=== PATIENT | female | born 1945 | race Caucasian/White ===

== ENCOUNTER 2022-07-30 10:08 | Outpatient (REF) | payer OTHER, SELFPAY ==
[2022-07-30 13:44] LABS: Basophils Percent Auto 0.4 % (0-2); Eosinophils Absolute Auto 0.2 X10*3/uL (0.0-0.4); Eosinophils Percent Auto 2.7 % (0-4); Hematocrit 30.5 % (37.0-47.0); Hemoglobin 9.3 g/dl (12.0-16.0); Imm Gran Abs Auto 0.07 X10*3/uL (0.00-0.03); Imm Gran Pct Auto 0.9 % (0.0-0.4); Lymphocytes Absolute Auto 0.9 X10*3/uL (1.2-4.9); Lymphocytes Percent Auto 11.2 % (20-40); MANUAL DIFF FLAG SCAN; Mean Corpuscular HGB Conc 30.5 g/dl (31.0-35.0); Mean Corpuscular Volume 88.7 fL (80.0-98.0); Mean Platelet Volume 10.7 fL (9.4-12.3); Monocytes Absolute Auto 0.5 X10*3/uL (0.1-1.2); Monocytes Percent Auto 6.5 % (2-11); Neutrophils Percent Auto 78.3 % (45-73); PLT CLUMP 1; Red Blood Count 3.44 X10*6/uL (4.20-5.50); Red Cell Distribution Width 21.6 % (11.0-16.0); SCAN SMEAR FLAG 1
[2022-07-30 13:45] LABS: Platelet Count 267 X10*3/uL (160-400); White Blood Count 7.7 X10*3/uL (4.8-10.8)
[2022-07-30 13:58] LABS: Alanine Aminotransferase 35 U/L (0-31); Aspartate Amino Transferase 36 U/L (5-31); Estimated Glomerular Filt Rate > 60
[2022-07-30 14:07] LABS: SLIDE REVIEW VERIFIED
== END 2022-07-30 10:09 | disposition home or self-care (01) ==
LOC: HO.10HDL 10:08
PROVIDERS: Visit Provider Internal Medicine Rheumatology
DX: Z79.899 Other long term (current) drug therapy (principal)
CPT/HCPCS: 36415; 82565; 84450; 84460; 85025

== ENCOUNTER → 2022-12-10 09:23 | Outpatient (BNVA) | payer OTHER, SELFPAY | PROVIDERS: PCP Physician Assistant Medical; Visit Provider Internal Medicine Rheumatology | DX: Z13.89 Encounter for screening for other disorder (principal) ==

== ENCOUNTER 2022-12-10 10:37 | Outpatient (REF) | payer OTHER, SELFPAY ==
[2022-12-10 14:06] LABS: MANUAL DIFF FLAG NO
[2022-12-10 14:28] LABS: Basophils Absolute Auto 0.1 X10*3/uL (0.0-0.2); Basophils Percent Auto 0.9 % (0-2); Eosinophils Absolute Auto 1.1 X10*3/uL (0.0-0.4); Eosinophils Percent Auto 9.8 % (0-4); Hematocrit 35.3 % (37.0-47.0); Hemoglobin 10.9 g/dl (12.0-16.0); Imm Gran Abs Auto 0.09 X10*3/uL (0.00-0.03); Imm Gran Pct Auto 0.8 % (0.0-0.4); Lymphocytes Absolute Auto 0.7 X10*3/uL (1.2-4.9); Lymphocytes Percent Auto 6.1 % (20-40); Mean Corpuscular HGB Conc 30.9 g/dl (31.0-35.0); Mean Corpuscular Hemoglobin 29.8 pg (27.0-33.0); Mean Corpuscular Volume 96.4 fL (80.0-98.0); Mean Platelet Volume 10.3 fL (9.4-12.3); Monocytes Absolute Auto 0.7 X10*3/uL (0.1-1.2); Monocytes Percent Auto 6.5 % (2-11); Neutrophils Absolute Auto 8.3 x10*3/uL (2.0-8.3); Neutrophils Percent Auto 75.9 % (45-73); Platelet Count 215 X10*3/uL (160-400); Red Blood Count 3.66 X10*6/uL (4.20-5.50); Red Cell Distribution Width 25.3 % (11.0-16.0); White Blood Count 10.9 X10*3/uL (4.8-10.8)
[2022-12-10 15:06] LABS: Erythrocyte Sedimentation Rate 90 MM/HR (0-20)
[2022-12-10 15:12] LABS: Alanine Aminotransferase 31 U/L (0-31); Aspartate Amino Transferase 35 U/L (5-31); C Reactive Protein 4.87 mg/dL (< or = 0.50); Estimated Glomerular Filt Rate > 60
== END 2022-12-10 10:38 | disposition home or self-care (01) ==
LOC: HO.10HDL 10:37
PROVIDERS: Visit Provider Internal Medicine Rheumatology
DX: M05.9 Rheumatoid arthritis with rheumatoid factor, unspecified (principal); Z79.899 Other long term (current) drug therapy
CPT/HCPCS: 36415; 82565; 84450; 84460; 85025; 85652; 86140

== ENCOUNTER 2023-01-11 14:52 | Outpatient (REF) | payer OTHER, SELFPAY ==
[2023-01-11 15:51] LABS: MANUAL DIFF FLAG NO
[2023-01-11 16:15] LABS: Basophils Percent Auto 0.3 % (0-2); Eosinophils Absolute Auto 0.6 X10*3/uL (0.0-0.4); Eosinophils Percent Auto 5.6 % (0-4); Hematocrit 37.2 % (37.0-47.0); Hemoglobin 11.7 g/dl (12.0-16.0); Imm Gran Abs Auto 0.05 X10*3/uL (0.00-0.03); Imm Gran Pct Auto 0.5 % (0.0-0.4); Lymphocytes Absolute Auto 0.8 X10*3/uL (1.2-4.9); Lymphocytes Percent Auto 7.6 % (20-40); Mean Corpuscular HGB Conc 31.5 g/dl (31.0-35.0); Mean Corpuscular Hemoglobin 31.6 pg (27.0-33.0); Mean Corpuscular Volume 100.5 fL (80.0-98.0); Mean Platelet Volume 9.9 fL (9.4-12.3); Monocytes Absolute Auto 0.5 X10*3/uL (0.1-1.2); Monocytes Percent Auto 4.4 % (2-11); Neutrophils Absolute Auto 8.3 x10*3/uL (2.0-8.3); Neutrophils Percent Auto 81.6 % (45-73); Platelet Count 215 X10*3/uL (160-400); Red Cell Distribution Width 19.1 % (11.0-16.0); White Blood Count 10.2 X10*3/uL (4.8-10.8)
[2023-01-11 16:43] LABS: Anion Gap 14 (12-20); Blood Urea Nitrogen 9 mg/dL (9-16); Calcium 9.1 mg/dL (8.4-10.2); Carbon Dioxide 23 mmol/L (22-29); Chloride 106 mmol/L (96-108); Estimated Glomerular Filt Rate > 60; Glucose Random 83 mg/dL (60-115); Potassium 3.9 mmol/L (3.3-5.1); Sodium 139 mmol/L (135-145)
[2023-01-11 16:57] LABS: Erythrocyte Sedimentation Rate 86 MM/HR (0-20)
[2023-01-12 15:04] LABS: IgA 183 mg/dL (70-320); IgG 1634 mg/dL (600-1540); IgM 165 mg/dL (50-300)
== END 2023-01-11 14:53 | disposition home or self-care (01) ==
LOC: HO.LAB 14:52
PROVIDERS: PCP Physician Assistant Medical; Visit Provider Hospitalist
DX: J45.50 Severe persistent asthma, uncomplicated (principal); J84.9 Interstitial pulmonary disease, unspecified; T78.40XA Allergy, unspecified, initial encounter; R91.8 Other nonspecific abnormal finding of lung field
CPT/HCPCS: 36415; 80048; 82784; 82785; 85025; 85652; 86003

== ENCOUNTER 2023-01-14 10:25 | Outpatient (REF) | payer OTHER, SELFPAY | END 2023-01-14 10:26 | disposition home or self-care (01) | LOC: HO.LNP 10:25 | PROVIDERS: Visit Provider Hospitalist | DX: J45.909 Unspecified asthma, uncomplicated (principal) | CPT/HCPCS: 87070; 87205 ==

== ENCOUNTER → 2023-03-24 11:08 | Outpatient (BNVA) | payer OTHER, SELFPAY | PROVIDERS: PCP Physician Assistant Medical; Visit Provider Hospitalist | DX: J45.909 Unspecified asthma, uncomplicated (principal); T78.40XA Allergy, unspecified, initial encounter; K21.9 Gastro-esophageal reflux disease without esophagitis ==

== ENCOUNTER → 2023-04-07 09:53 | Outpatient (BNVA) | payer OTHER, SELFPAY | PROVIDERS: PCP Physician Assistant Medical; Visit Provider Internal Medicine Rheumatology ==

== ENCOUNTER 2023-06-16 11:12 | Outpatient (AMB) | payer OTHER, SELFPAY ==
[2023-06-16 11:24] VITALS: PULSE 70; O2SAT 96; BMI 27.5
--- NOTE | 2023-06-16 11:24 | MHC.OFFVIS ---
Intake Vital Signs 06/16/23 11:24 Height 5 ft 4 in Weight 160 lb BMI 27.5 Pulse 70 Pulse Source Pulse Oximeter Pulse Oximetry (%) 96 Oxygen Delivery Method Room Air Intake Visit Reasons: CYDNEY/Asthma Event Sales Manager Required: No Allergies Seasonal Allergies Allergy (Intermediate, Verified 06/16/23 11:25) runny nose,itchy eyes No Known Drug Allergies Allergy (Unknown, Verified 06/16/23 11:25) Unknown HPI HPI Comments History of Present Illness Details The patient is a 78 year woman with severe persistent asthma in addition to inflammatory polyarthritis followed closely by Rheumatology currently methotrexate. The patient has been followed closely by local pulmonology. 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 However for some reason it was stopped. Therefore, she continues on the Trelegy. With the Trelegy she continues to have shortness breath and also productive phlegm. Patient is no better. Symptoms are moderate severity. Recently she did develop abdominal and flank discomfort. The patient will gone to the [facility] which had x-ray without any acute disease and also had CT scan of the abdomen. The lung windows demonstrated bibasilar airspace disease. Although when compared to her previous CT scan from March 2022 they actually appear to be little better. He she had does have changes to the the upper lung zones with nodular densities symptoms areas some pneumonitis and scarring in addition to the interstitial changes in the basilar area. Will continue to monitor to see if there is any progression of the interstitial lung disease component. Is not clear if this is related to the [place] arthritis or if is related to the methotrexate although she has been on methotrexate for a long time. All in all will continue to monitor for any evidence of any connective tissue disease related interstitial lung disease. 03/24/2023 the patient is here for a pulmonary follow-up visit. The patient having difficulty with her breathing. She has had significant chest congestion and shortness of breath. Moderate severity. Trelegy has not been very helpful for her. Also is extremely expensive. Will go ahead and switch her to nebulized therapies at this time. We did review her blood work including an elevated IgE level about 2000 and also an elevated eosinophil level about 1000 which significant for allergic asthma. The patient also has chronic bronchitis from the allergic asthma. [facility]. The patient was on Nucala with partial improvement of the symptoms. However, that was discontinued by her previous office. I do believe that based on the elevations in her IgE and eosinophil should be a better candidate for Dupixent. Therefore will submit for that instead. In the meantime will going to set her set her up for nebulized therapy since she will follow-up in 2-3 months. 06/16/2023 the patient is here for pulmonary follow-up visit. Overall the patient has been doing fairly well. She is responding well to the Brovana and budesonide nebs. She finds them very effective. Although she gets very tremulous with them. The patient also usually has symptoms in the morning before the breathing treatments. Unfortunately she is not able to do the breathing treatment a night because she gets very tremulous. I did send her prescription for Spiriva that she can use at nighttime with hopes that it did improve her symptoms in the morning. Although he still may be a high co-pay will see. She is also responding well to the pigs injection. She gets that every 2 weeks. Her breathing on examination significantly improved without any significant wheezing. She does get short of breath. I did explain to her that this is multifactorial and not only related to her breathing. Otherwise patient is doing fairly well will follow-up in 4-6 months. [facility] Medical History (Updated 01/11/23 @ 22:07 by Alejandro Davis MD) Allergies ILD (interstitial lung disease) Pulmonary nodules Surgical History H/O sinus surgery History of cholecystectomy History of lumpectomy of right breast Family History Sister Breast cancer Diabetes Social History Household Members: Spouse Housing: House Are you a primary animal caretaker to a significant other at home: No Do you presently have visiting nurse or other home services: No 75 years or older and lives alone: No Alcohol intake: never Patient Tobacco Use Status: Never used Tobacco service: No Current occupational status: retired Review of Systems Const Reports fatigue and Denies fever(s) Eyes Denies change in vision ENT Reports nasal congestion Card Denies chest pain and Reports dyspnea on exertion Resp Reports chest congestion, Reports cough, Denies hemoptysis, Reports dyspnea on exertion and Reports wheezing GI Reports no additional complaints Musc Reports no additional complaints Skin/Breast Denies rash Neuro Reports no additional complaints Endo Reports fatigue Emilio/Lymph Denies easy bleeding and Denies easy bruising Aller/Immun Reports wheezing Physical Exam Vital Signs: Last Vital Signs Pulse 70 06/16/23 11:24 Pulse Ox 96 06/16/23 11:24 Oxygen Delivery Method Room Air 06/16/23 11:24 BMI result Body Mass Index 27.5 Const General: comfortable HEENT Head: Yes normocephalic Neck Neck: Yes supple Chest Chest palpation & inspection: normal inspection of the chest Resp Effort & Inspection: normal respiratory effort Auscultation: no rhonchi, no wheezes and diminished lung sounds Cardio Rate: regular rate Rhythm: regular rhythm Heart sounds: S1 normal heart sound present and S2 normal heart sound present GI Palpation (GI): Soft to palpation Skin General skin exam: no rashes or lesions noted Extrem General: Yes no clubbing, cyanosis or edema Assessment & Plan Assessment & Plan (1) Asthma: Code(s): J45.909 - Unspecified asthma, uncomplicated Qualifiers: Asthma complication type: uncomplicated Asthma persistence: persistent Asthma severity: severe Qualified Code(s): J45.50 - Severe persistent asthma, uncomplicated (2) ILD (interstitial lung disease): Comment: ? related to connective tissue disease, MTX induced Code(s): J84.9 - Interstitial pulmonary disease, unspecified (3) Allergies: Code(s): T78.40XA - Allergy, unspecified, initial encounter Qualifiers: Encounter type: initial encounter Qualified Code(s): T78.40XA - Allergy, unspecified, initial encounter (4) Pulmonary nodules: Code(s): R91.8 - Other nonspecific abnormal finding of lung field Plan continue Dupixent continue Brovana/BUdesonide Add Spiriva at night Will need a repeat CT chest march 2024 F/U 4-6 months the the Medications: New tiotropium bromide 2.5 mcg/actuation (Spiriva Respimat) 2 puffs inhalation DAILY 30 days 1 ea 11RF Coding Level of Care Code Est Pt Level 4 (67643) Diagnoses Asthma J45.50 Asthma complication type: uncomplicated Asthma persistence: persistent Asthma severity: severe ILD (interstitial lung disease) J84.9 Allergies T78.40XA Encounter type: initial encounter Pulmonary nodules R91.8 Time Spent (min) 18
== END 2023-06-16 11:45 | disposition home or self-care (01) ==
PROVIDERS: PCP Physician Assistant Medical; Visit Provider Hospitalist
DX: J45.50 Severe persistent asthma, uncomplicated (principal); J84.9 Interstitial pulmonary disease, unspecified; T78.40XA Allergy, unspecified, initial encounter; R91.8 Other nonspecific abnormal finding of lung field
CPT/HCPCS: 99214

== ENCOUNTER → 2023-06-16 11:12 | Outpatient (BNVA) | payer OTHER, SELFPAY | PROVIDERS: PCP Physician Assistant Medical; Visit Provider Hospitalist | DX: J45.909 Unspecified asthma, uncomplicated (principal); T78.40XA Allergy, unspecified, initial encounter; K21.9 Gastro-esophageal reflux disease without esophagitis ==

== ENCOUNTER 2023-07-19 14:13 | Outpatient (AMB) | payer OTHER, SELFPAY ==
[2023-07-19 14:18] VITALS: BP 126/62; PULSE 79; O2SAT 98; BMI 27.6
--- NOTE | 2023-07-19 14:18 | MHC.OFFVIS ---
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 [facility] Medical History (Updated 01/11/23 @ 22:07 by Alejandro Davis MD) Pulmonary nodules ILD (interstitial lung disease) Allergies Surgical History H/O sinus surgery History of cholecystectomy History of lumpectomy of right breast Family History Sister Breast cancer Diabetes Social History Household Members: Spouse Housing: House Are you a primary inspector health care facilities to a significant other at home: No Do you presently have visiting nurse or other home services: No 75 years or older and lives alone: No Alcohol intake: never Patient Tobacco Use Status: Never used Tobacco service: No Current occupational status: retired Review of Systems Const Denies daytime sleepiness, Denies excessive sweating, Denies fatigue, Denies fever(s), Denies lethargy, Denies malaise, Denies night sweats, Denies snoring and Denies weight loss Eyes Denies blurry vision and Denies itchy eyes ENT Denies nasal congestion, Denies post nasal drip, Denies sinus pain, Denies sinus pressure and Denies other ( Thrush) Card Denies chest pain, Denies pedal edema, Denies dyspnea, Denies orthopnea and Denies paroxysmal nocturnal dyspnea Resp Reports cough, Denies hemoptysis, Denies excessive phlegm production, Denies dyspnea, Denies snoring and Reports wheezing GI Denies abdominal pain and Denies heartburn Musc Denies myalgias, Denies arthralgias and Denies joint swelling Skin/Breast Denies rash Neuro Denies memory loss and Denies seizure-like activity Psych Denies abnormal sleep pattern, Denies anxiety and Denies memory loss Endo Denies excessive sweating, Denies fatigue and Denies heat intolerance Emilio/Lymph Denies easy bruising Aller/Immun Denies itchy eyes, Denies seasonal rhinorrhea and Reports wheezing Physical Exam Vital Signs: Last Vital Signs Pulse 79 07/19/23 14:18 BP 126/62 07/19/23 14:18 Pulse Ox 98 07/19/23 14:18 Oxygen Delivery Method Room Air 07/19/23 14:18 BMI result Body Mass Index 27.6 Const General: no acute distress and alert Nutritional Appearance: not obese Orientation/consciousness: Other orientation findings ( oriented) HEENT Head: Yes atraumatic Eyes General: appearance normal, both eyes and all related structures Sclerae: sclerae normal EOM: EOMs intact bilaterally Neck Neck: Yes supple Lymphatic: no lymphadenopathy noted Resp Effort & Inspection: normal respiratory effort and no use of accessory muscles Auscultation: clear to auscultation bilaterally Cardio Rate: regular rate Rhythm: regular rhythm Heart sounds: no gallops, no murmurs and no rubs Skin General skin exam: other ( warm) Extrem General: No clubbing, No cyanosis and No edema Assessment & Plan Assessment & Plan (1) Asthma: Code(s): J45.909 - Unspecified asthma, uncomplicated Qualifiers: Asthma severity: severe Asthma persistence: persistent Asthma complication type: uncomplicated Qualified Code(s): J45.50 - Severe persistent asthma, uncomplicated Plan: Acute exacerbation. Will treat with a course of prednisone for 5 days. Continue baseline regimen of Spiriva, Singulair, nebulized budesonide, Brovana, and azithromycin 3 times week. Medications: New prednisone 40 mg (2 x 20 mg) PO DAILY 10 tabs 0RF 5 days Coding Level of Care Code Est Pt Level 3 (30897) Diagnoses Severe persistent asthma without complication J45.50 Asthma severity: severe Asthma persistence: persistent Asthma complication type: uncomplicated
== END 2023-07-19 14:38 | disposition home or self-care (01) ==
PROVIDERS: PCP Physician Assistant Medical; Visit Provider Internal Medicine Pulmonary Disease
DX: J45.50 Severe persistent asthma, uncomplicated (principal)
CPT/HCPCS: 99213

== ENCOUNTER → 2023-07-19 14:13 | Outpatient (BNVA) | payer OTHER, SELFPAY | PROVIDERS: PCP Physician Assistant Medical; Visit Provider Internal Medicine Pulmonary Disease ==

== ENCOUNTER 2023-09-17 13:12 | Outpatient (AMB) | payer OTHER, SELFPAY ==
--- NOTE | 2023-09-17 13:15 | A.OFFVIS_ITS ---
Intake Vital Signs 09/17/23 13:16 Weight 156 lb 8.451 oz BP 128/58 L Blood Pressure Location Rt brachial Position Sitting Pulse 71 Pulse Source Pulse Oximeter Pulse Oximetry (%) 97 Oxygen Delivery Method Room Air Intake Visit Reasons: Asthma Allergies Seasonal Allergies Allergy (Intermediate, Verified 09/17/23 13:20) runny nose,itchy eyes No Known Drug Allergies Allergy (Unknown, Verified 09/17/23 13:20) Unknown Medication List - Last Reconciled 09/17/23 by Lilian Gonzalez LPN acetaminophen ER (Tylenol Arthritis Pain) 650 mg PO Q8H PRN albuterol sulfate 90 mcg/actuation 2 puffs inhalation QID PRN albuterol sulfate 2.5 mg inhalation Q4-6H PRN amoxicillin 1,000 mg PO BID antiarthritic combination no.2 (glucosamine-chondroitin) mg PO apixaban 5 mg PO BID arformoterol (Brovana) 2 mL inhalation Q12H 30 days atorvastatin (Lipitor) 40 mg PO DAILY azelastine 2 sprays intranasal BID azithromycin 250 mg PO 3XW 28 days budesonide 0.5 mg (2 mL) inhalation BID 30 days diltiazem HCl ER mg PO dupilumab (Dupixent) Loading dose: 600mg SC x 1, then, 300mg subcutaneously every 2 weeks; 30 days folic acid 1 mg PO DAILY lorazepam 0.5 mg PO TID PRN methotrexate sodium 12.5 mg (5 x 2.5 mg) PO QWEEK montelukast 10 mg PO BEDTIME nebulizers As directed omeprazole 20 mg PO DAILY prednisone 40 mg (2 x 20 mg) PO DAILY 5 days sertraline 100 mg PO DAILY tiotropium bromide 2.5 mcg/actuation (Spiriva Respimat) 2 puffs inhalation DAILY 30 days valsartan 160 mg PO DAILY HPI HPI Comments History of Present Illness Details The patient is a 78 year woman with severe persistent asthma in addition to inflammatory polyarthritis followed closely by Rheumatology currently methotrexate. The patient has been followed closely by local pulmonology. 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 However for some reason it was stopped. Therefore, she continues on the Trelegy. With the Trelegy she continues to have shortness breath and also productive phlegm. Patient is no better. Symptoms are moderate severity. Recently she did develop abdominal and flank discomfort. The patient will gone to the [facility] which had x-ray without any acute disease and also had CT scan of the abdomen. The lung windows demonstrated bi basilar airspace disease. Although when compared to her previous CT scan from March 2022 they actually appear to be little better. He she had does have changes to the the upper lung zones with nodular densities symptoms areas some pneumonitis and scarring in addition to the interstitial changes in the basilar area. Will continue to monitor to see if there is any progression of the interstitial lung disease component. Is not clear if this is related to the [place] arthritis or if is related to the methotrexate although she has been on methotrexate for a long time. All in all will continue to monitor for any evidence of any connective tissue disease related interstitial lung disease. 03/24/2023 the patient is here for a pulmo martha follow-up visit. The patient having difficulty with her breathing. She has had significant chest congestion and shortness of breath. Moderate severity. Trelegy has not been very helpful for her. Also is extremely expensive. Will go ahead and switch her to nebulized therapies at this time. We did review her blood work including an elevated IgE level about 2000 and also an elevated eosinophil level about 1000 which significant for allergic asthma. The patient also has chronic bronchitis from the allergic asthma. [facility] The patient was on Nucala with partial improvement of the symptoms. However, that was discontinued by her previous office. I do believe that based on the elevations in her IgE and eosinophil should be a better candidate for Dupixent. Therefore will submit for that instead. In the meantime will going to set her set her up for nebulized therapy since she will follow-up in 2-3 months. 06/16/2023 the patient is here for pulmon marylu follow-up visit. Overall the patie nt has been doing fairly well. She is responding well to the Brovana and budesonide nebs. She finds them very effective. Although she gets very tremulous with them. The patient also usually has symptoms in the morning before the breathing treatments. Unfortunately she is not able to do the breathing treatment a night because she gets very tremulous. I did send her prescription for Spiriva that she can use at nighttime with hopes that it did improve her symptoms in the morning. Although he still may be a high co-pay will see. She is also responding well to the pigs injection. She gets that every 2 weeks. Her breathing on examination significantly improved without any significant wheezing. She does get short of breath. I did explain to her that this is multifactorial and not only related to her breathing. Otherwise patient is doing fairly well will follow-up in 4-6 months. 09/17/2023 the patient is here for a pulmonary follow-up visit. From a respiratory status she continues to do well. She is responding well to the Dupixent injections. She continues with the nebulized therapy with good effect. Does have some shortness of breath and does relying her walker. We did go for brief walking oximetry in the patient maintain a good normal saturation. Likely that her dyspnea is multifactorial. No wheezing on examination at this point. She has had issues with GI Issues that she is currently being evaluated for. As far as imaging studies for her interstitial lung disease she will have another CT scan sometime in the summer of 2023. will continue with the current respiratory therapy will follow-up in 4-6 months. [facility] Medical History (Updated 01/11/23 @ 22:07 by Alejandro Davis MD) Pulmonary nodules ILD (interstitial lung disease) Allergies Surgical History H/O sinus surgery History of cholecystectomy History of lumpectomy of right breast Family History Sister Breast cancer Diabetes Social History Household Members: Spouse Housing: House Are you a primary adult live in caregiver to a significant other at home: No Do you presently have visiting nurse or other home services: No 75 years or older and lives alone: No Alcohol intake: never Patient Tobacco Use Status: Never used Tobacco service: No Current occupational status: retired Review of Systems Const Reports fatigue and Denies fever(s) Eyes Denies change in vision ENT Reports nasal congestion Card Denies chest pain and Reports dyspnea on exertion Resp Denies chest congestion, Reports cough, Denies hemoptysis, Reports dyspnea on exertion and Denies wheezing GI Reports abdominal pain Musc Reports no additional complaints Skin/Breast Denies rash Neuro Reports no additional complaints Endo Reports fatigue Emilio/Lymph Denies easy bleeding and Denies easy bruising Aller/Immun Denies wheezing Physical Exam Vital Signs: Last Vital Signs Pulse 71 09/17/23 13:16 BP 128/58 L 09/17/23 13:16 Pulse Ox 97 09/17/23 13:16 Oxygen Delivery Method Room Air 09/17/23 13:16 Const General: comfortable HEENT Head: Yes normocephalic Neck Neck: Yes supple Chest Chest palpation & inspection: normal inspection of the chest Resp Effort & Inspection: normal respiratory effort Auscultation: no rhonchi, no wheezes and diminished lung sounds Cardio Rate: regular rate Rhythm: regular rhythm Heart sounds: S1 normal heart sound present and S2 normal heart sound present GI Palpation (GI): Soft to palpation Skin General skin exam: no rashes or lesions noted Extrem General: Yes no clubbing, cyanosis or edema Assessment & Plan Assessment & Plan (1) Asthma: Code(s): J45.909 - Unspecified asthma, uncomplicated Qualifiers: Asthma complication type: uncomplicated Asthma persistence: persistent Asthma severity: severe Qualified Code(s): J45.50 - Severe persistent asthma, uncomplicated (2) ILD (interstitial lung disease): Comment: ? related to connective tissue disease, MTX induced Code(s): J84.9 - Interstitial pulmonary disease, unspecified (3) Allergies: Code(s): T78.40XA - Allergy, unspecified, initial encounter Qualifiers: Encounter type: initial encounter Qualified Code(s): T78.40XA - Allergy, unspecified, initial encounter (4) Pulmonary nodules: Code(s): R91.8 - Other nonspecific abnormal finding of lung field Plan continue Dupixent continue Brovana/BUdesonide continue Spiriva at night Will need a repeat CT chest march 2024 F/U 4-6 months the the Coding Level of Care Code Est Pt Level 4 (26935) Diagnoses Severe persistent asthma without complication J45.50 Asthma complication type: uncomplicated Asthma persistence: persistent Asthma severity: severe ILD (interstitial lung disease) J84.9 Allergy, initial encounter T78.40XA Encounter type: initial encounter Pulmonary nodules R91.8 Time Spent (min) 17
[2023-09-17 13:16] VITALS: BP 128/58; PULSE 71; O2SAT 97
== END 2023-09-17 13:45 | disposition home or self-care (01) ==
PROVIDERS: PCP Physician Assistant Medical; Visit Provider Hospitalist
DX: J45.50 Severe persistent asthma, uncomplicated (principal); J84.9 Interstitial pulmonary disease, unspecified; T78.40XA Allergy, unspecified, initial encounter; R91.8 Other nonspecific abnormal finding of lung field
CPT/HCPCS: 99214

== ENCOUNTER → 2023-09-17 13:12 | Outpatient (BNVA) | payer OTHER, SELFPAY | PROVIDERS: PCP Physician Assistant Medical; Visit Provider Hospitalist ==

== ENCOUNTER 2023-09-29 11:24 | Outpatient (AMB) | payer OTHER, SELFPAY ==
[2023-09-29 11:33] VITALS: BP 140/58; PULSE 70; TEMP 2.3; TEMP 36.1; O2SAT 99; BMI 28.2
--- NOTE | 2023-09-29 11:33 | A.OFFVIS_ITS ---
Intake Vital Signs 09/29/23 11:33 Height 5 ft 2 in Weight 154 lb 5.177 oz BMI 28.2 BP 140/58 H Blood Pressure Location Lt brachial Position Sitting Pulse 70 Pulse Source Pulse Oximeter Temp 36.1 F L Temp Source Tympanic Pulse Oximetry (%) 99 Oxygen Delivery Method Room Air Intake Visit Reasons: RA Product Introduction Manager Required: No Accompanied by: Self / Same As Patient Allergies Seasonal Allergies Allergy (Intermediate, Verified 09/29/23 11:39) runny nose,itchy eyes No Known Drug Allergies Allergy (Unknown, Verified 09/29/23 11:39) Unknown Medication List - Last Reconciled 09/29/23 by Tara Nunez RN acetaminophen ER (Tylenol Arthritis Pain) 650 mg PO Q8H PRN albuterol sulfate 90 mcg/actuation 2 puffs inhalation QID PRN albuterol sulfate 2.5 mg inhalation Q4-6H PRN antiarthritic combination no.2 (glucosamine-chondroitin) mg PO apixaban 5 mg PO BID arformoterol (Brovana) 2 mL inhalation Q12H 30 days atorvastatin (Lipitor) 40 mg PO DAILY azelastine 2 sprays intranasal BID budesonide 0.5 mg (2 mL) inhalation BID 30 days diltiazem HCl ER mg PO dupilumab (Dupixent) Loading dose: 600mg SC x 1, then, 300mg subcutaneously every 2 weeks; 30 days folic acid 1 mg PO DAILY lorazepam 0.5 mg PO TID PRN methotrexate sodium 12.5 mg (5 x 2.5 mg) PO QWEEK montelukast 10 mg PO BEDTIME nebulizers As directed omeprazole 20 mg PO DAILY prednisone 40 mg (2 x 20 mg) PO DAILY 5 days sertraline 100 mg PO DAILY tiotropium bromide 2.5 mcg/actuation (Spiriva Respimat) 2 puffs inhalation DAILY 30 days valsartan 160 mg PO DAILY HPI HPI Comments History of Present Illness Details The patient returns for evaluation of her rheumatoid arthritis. She remains on 12.5 mg weekly methotrexate and 1 mg daily folic acid. With this regimen the joint symptoms are seemingly fairly well controlled. She does get some back pain with prolonged standing and some knee pain with walking. She admits to some unsteadiness with walking and walks with a wheeled walker. She says that she knows she needs to do more exercise to strengthen the legs but she has been in an out of the hospital recently. Most problematic recently has been recurrent GI bleeding. She has had endoscopies with 1 cauterization of a vessel in the duodenum but she has had subsequent bleeding. She has been in the hospital 3 times in the last few months getting transfused. Because of the recurrent bleeding she was taken off the Eliquis. Since that time she has not had further bleeding. She is scheduled to see Cardiology to consider a Watchman procedure to try to prevent future risk of stroke from her atrial fibrillation. There is also a plan to do some video capsule surveillance of the GI tract to see if a bleeding site can be identified. [facility] Medical History Pulmonary nodules ILD (interstitial lung disease) Allergies Surgical History History of cholecystectomy H/O sinus surgery History of lumpectomy of right breast Family History Sister Breast cancer Diabetes Social History Household Members: Spouse Housing: House Are you a primary healthcare administrative assistant to a significant other at home: No Do you presently have visiting nurse or other home services: No 75 years or older and lives alone: No Alcohol intake: never Patient Tobacco Use Status: Never used Tobacco service: No Current occupational status: retired Review of Systems Const Details: Negative for appetite change, weight change, fever, chills, malaise and fatigue Eyes Details: Negative for vision change, dry eyes,headaches and dizziness ENT Details: Negative for hearing change, tinnitus, oral ulcer, nose bleeds and oral dryness. Card Details: Negative chest pain, edema and syncope Resp Details: Negative for SOB, cough and wheezing GI Details: Episodes of melena as noted above. Recently negative for indigestion/heartburn, nausea, abdominal pain, bowel changes, diarrhea, constipation and bloody stool. Emilio/Lymph Details: Negative for excessive bruising or bleeding. Physical Exam Vital Signs: Last Vital Signs Temp 36.1 F L 09/29/23 11:33 Pulse 70 09/29/23 11:33 BP 140/58 H 09/29/23 11:33 Pulse Ox 99 09/29/23 11:33 Oxygen Delivery Method Room Air 09/29/23 11:33 BMI result Body Mass Index 28.2 APPEARANCE: Patient in no acute distress EYES no redness, pupils equal and reactive to light, eyelids normal EXTREMITIES: No edema, no calf tenderness, normal peripheral pulses. JOINT EXAM:?? Cervical Spine:.? Decreased lateral?flexion to 10 degrees and rotation of 45 degrees but without pain.? No?tenderness. Thoracic Spine:.? No scoliosis.? No tenderness on palpation. Lumbar Spine:.? Alignment normal.? Slight discomfort with extremes of normal flexion extension.? No he tenderness. Chest Wall:.? No tenderness, swelling, increased warmth or erythema. Hands:.? Right:? Mild bony enlargement and slight tenderness at the base of the thumb. Mild swelling of the 2nd MCP, 3rd MCP and the 3rd PIP joints.? These are not tender today.? There is some slight bony enlargement and ulnar deviation at the 5th PIP.? There is minimal bony enlargement at the 2nd and 5th DIP joints but these are not tender..? There is no thenar atrophy or sensory loss.? No flexor tendon triggering or swelling.? Left: Mild swelling with no tenderness at the base of the thumb, the 2nd MCP, the 3rd MCP and the 4th PIP .? No thenar atrophy or sensory loss.? Other joints have normal pain-free range of motion without tenderness, swelling, increased warmth or erythema. Able to make a full fist and has a good hammer repairer strength. Wrists:.? No pain with flexion or extension at 75 degrees with no tenderness or swelling. Elbows:. Normal pain-free range of motion without tenderness, swelling, increased warmth or erythema. Shoulders: Left: Mild discomfort with extremes of motion. Mild anterior and subacromial tenderness. No abductor weakness, adenopathy or swelling. Right:?? Full range of motion without pain. No tenderness, weakness, swelling, increased warmth or erythema. Hips:. Range of motion seems intact with some lumbar pain at the extremes of internal and external rotation. No groin pain with motion. Hip bursa:.? No tenderness. Knees:? Right: Normal pain-free range of motion without tenderness.? The knee replacement scar which are well healed with no effusion, swelling, increased warmth or erythema.? There is slight mediolateral tenderness but no popliteal swelling or tenderness. Left: Mild pain with extremes of flexion or extension. There is mild medial and lateral tenderness without effusion, redness or w armth, the scar seems well healed and not tender. Ankles:? Normal pain-free range of motion without tenderness, swelling, increased warmth or erythema. Feet: Normal pain-free range of motion without tenderness, swelling, increased warmth or erythema. 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 Video pill planned Code(s): K92.2 - Gastrointestinal hemorrhage, unspecified (5) Elevated transaminase level: Code(s): R74.01 - Elevation of levels of liver transaminase levels (6) Seropositive rheumatoid arthritis: Comment: SERO +, onset 09/19 Methotrexate begun 12/19, Enbrel added 07/21 - stopped summer 2010(insurance change) Code(s): M05.9 - Rheumatoid arthritis with rheumatoid factor, unspecified Plan Rheumatoid arthritis with fairly good control of synovitis with current treatment. There are some mild changes in the hands due to osteoarthritis. She has underlying lumbar osteoarthritis that has caused back pain and deconditioning over the past year or so. The transaminases are slightly elevated. I think we should reduce her methotrexate down to 10 mg weekly. She should have lab work again in a few months. I gave her some printed lab slips to use as she cannot get to our lab realistically. We will give her an appointment for 3 months but she is going to try to seek out another corn sheller in [place], closer to her home. She will follow-up with GI about the pill endoscopy and also with Cardiology about the possibility of a Watchman procedure. Review of her history, review of her [facility] [employer] records, her exam today and discussion of her treatment alternatives took 34 minutes. Orders: Orders Complete Blood Count Auto Diff Today Z79.899 - Other fci (current) drug therapy Erythrocyte Sedimentation Rate Today M05.9 - Rheumatoid arthritis with rheumatoid factor, unspecified, Z79.899 - Other computer terminal operator (current) drug therapy Comprehensive Met. Panel Today Z79.899 - Other fci (current) drug therapy C Reactive Protein Today M05.9 - Rheumatoid arthritis with rheumatoid factor, unspecified, Z79.899 - Other computer terminal operator (current) drug therapy Coding Level of Care Code Est Pt Level 4 (20236) Diagnoses termite control representative use of drug Z79.899 Osteoarthritis of lumbar spine M47.816 History of bilateral knee arthroplasty Z96.653 Recurrent gastrointestinal hemorrhage K92.2 Elevated transaminase level R74.01 Seropositive rheumatoid arthritis M05.9
== END 2023-09-29 12:28 | disposition home or self-care (01) ==
PROVIDERS: PCP Physician Assistant Medical; Visit Provider Internal Medicine Rheumatology
DX: M05.79 Rheumatoid arthritis with rheumatoid factor of multiple sites without organ or systems involvement (principal); Z79.631 Long term (current) use of antimetabolite agent; M47.816 Spondylosis without myelopathy or radiculopathy, lumbar region; K92.2 Gastrointestinal hemorrhage, unspecified; Z96.653 Presence of artificial knee joint, bilateral; R74.01 Elevation of levels of liver transaminase levels
CPT/HCPCS: 99214

== ENCOUNTER → 2023-09-29 11:24 | Outpatient (BNVA) | payer OTHER, SELFPAY | PROVIDERS: PCP Physician Assistant Medical; Visit Provider Internal Medicine Rheumatology ==

== ENCOUNTER 2024-01-17 13:01 | Outpatient (AMB) | payer OTHER, SELFPAY ==
[2024-01-17 13:06] VITALS: PULSE 75; O2SAT 96; BMI 25.7
--- NOTE | 2024-01-17 13:06 | MHC.OFFVIS ---
Intake Vital Signs 01/17/24 13:06 Height 5 ft 4 in Weight 150 lb BMI 25.7 Pulse 75 Pulse Source Pulse Oximeter Pulse Oximetry (%) 96 Oxygen Delivery Method Room Air Intake Visit Reasons: Asthma Ring Stamper Required: No Allergies Seasonal Allergies Allergy (Intermediate, Verified 01/17/24 13:07) runny nose,itchy eyes No Known Drug Allergies Allergy (Unknown, Verified 01/17/24 13:07) Unknown HPI HPI Comments History of Present Illness Details The patient is a 78 year woman with severe persistent asthma in addition to inflammatory polyarthritis followed closely by Rheumatology currently methotrexate. The patient has been followed closely by local pulmonology. 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 However for some reason it was stopped. Therefore, she continues on the Trelegy. With the Trelegy she continues to have shortness breath and also productive phlegm. Patient is no better. Symptoms are moderate severity. Recently she did develop abdominal and flank discomfort. The patient will gone to the [facility] which had x-ray without any acute disease and also had CT scan of the abdomen. The lung windows demonstrated bibasilar airspace disease. Although when compared to her previous CT scan from March 2022 they actually appear to be little better. He she had does have changes to the the upper lung zones with nodular densities symptoms areas some pneumonitis and scarring in addition to the interstitial changes in the basilar area. Will continue to monitor to see if there is any progression of the interstitial lung disease component. Is not clear if this is related to the [place] arthritis or if is related to the methotrexate although she has been on methotrexate for a long time. All in all will continue to monitor for any evidence of any connective tissue disease related interstitial lung disease. 03/24/2023 the patient is here for a pulmonary follow-up visit. The patient having difficulty with her breathing. She has had significant chest congestion and shortness of breath. Moderate severity. Trelegy has not been very helpful for her. Also is extremely expensive. Will go ahead and switch her to nebulized therapies at this time. We did review her blood work including an elevated IgE level about 2000 and also an elevated eosinophil level about 1000 which significant for allergic asthma. The patient also has chronic bronchitis from the allergic asthma. [facility] The patient was on Nucala with partial improvement of the symptoms. However, that was discontinued by her previous office. I do believe that based on the elevations in her IgE and eosinophil should be a better candidate for Dupixent. Therefore will submit for that instead. In the meantime will going to set her set her up for nebulized therapy since she will follow-up in 2-3 months. 06/16/2023 the patient is here for pulmonary follow-up visit. Overall the patient has been doing fairly well. She is responding well to the Brovana and budesonide nebs. She finds them very effective. Although she gets very tremulous with them. The patient also usually has symptoms in the morning before the breathing treatments. Unfortunately she is not able to do the breathing treatment a night because she gets very tremulous. I did send her prescription for Spiriva that she can use at nighttime with hopes that it did improve her symptoms in the morning. Although he still may be a high co-pay will see. She is also responding well to the pigs injection. She gets that every 2 weeks. Her breathing on examination significantly improved without any significant wheezing. She does get short of breath. I did explain to her that this is multifactorial and not only related to her breathing. Otherwise patient is doing fairly well will follow-up in 4-6 months. 09/17/2023 the patient is here for a pulmonary follow-up visit. From a respiratory status she continues to do well. She is responding well to the Dupixent injections. She continues with the nebulized therapy with good effect. Does have some shortness of breath and does relying her walker. We did go for brief walking oximetry in the patient maintain a good normal saturation. Likely that her dyspnea is multifactorial. No wheezing on examination at this point. She has had issues with GI Issues that she is currently being evaluated for. As far as imaging studies for her interstitial lung disease she will have another CT scan sometime in the summer of 2023. will continue with the current respiratory therapy will follow-up in 4-6 months. 01/17/2024 the patient is here for a pulmonary follow-up visit. She have an hour time for the last several weeks. She was seen by urgent care. The patient is noted to have wheezing she was placed on prednisone 40 mg. She typically does not respond to that dose she states. She started developing worsening cough chest congestion. On further questioning she states she has not use it Dupixent now several months because she has not gotten the medication via mail. I did have her talk to our nurse. The patient needs to understand the process where she needs to call the pharmacy in order to have the medications sent. The nurse did help the patient and did call and schedule delivery of the medication. No recent imaging studies at this time. Will give her an x-ray requisition in order for her to get an x-ray when available. [facility] Medical History (Updated 01/17/24 @ 20:56 by Alejandro Davis MD) Bronchitis Pulmonary nodules ILD (interstitial lung disease) Allergies Surgical History History of cholecystectomy H/O sinus surgery History of lumpectomy of right breast Family History Sister Breast cancer Diabetes Social History Household Members: Spouse Housing: House Are you a primary team primary care physician to a significant other at home: No Do you presently have visiting nurse or other home services: No 75 years or older and lives alone: No Alcohol intake: never Patient Tobacco Use Status: Never used Tobacco service: No Current occupational status: retired Review of Systems Const Reports fatigue and Denies fever(s) Eyes Denies change in vision ENT Reports nasal congestion Card Denies chest pain and Reports dyspnea on exertion Resp Reports chest congestion, Reports cough, Denies hemoptysis, Reports dyspnea on exertion and Reports wheezing GI Reports abdominal pain Musc Reports no additional complaints Skin/Breast Denies rash Neuro Reports no additional complaints Endo Reports fatigue Emilio/Lymph Denies easy bleeding and Denies easy bruising Aller/Immun Reports wheezing Physical Exam Vital Signs: Last Vital Signs Pulse 75 01/17/24 13:06 Pulse Ox 96 01/17/24 13:06 Oxygen Delivery Method Room Air 01/17/24 13:06 BMI result Body Mass Index 25.7 Const General: comfortable HEENT Head: Yes normocephalic Neck Neck: Yes supple Chest Chest palpation & inspection: normal inspection of the chest Resp Effort & Inspection: normal respiratory effort and prolonged expiratory phase Auscultation: rhonchi, wheezes and diminished lung sounds Cardio Rate: regular rate Rhythm: regular rhythm Heart sounds: S1 normal heart sound present and S2 normal heart sound present GI Palpation (GI): Soft to palpation Skin General skin exam: no rashes or lesions noted Extrem General: Yes no clubbing, cyanosis or edema Assessment & Plan Assessment & Plan (1) Asthma: Code(s): J45.909 - Unspecified asthma, uncomplicated Qualifiers: Asthma complication type: with acute exacerbation Asthma persistence: persistent Asthma severity: severe Qualified Code(s): J45.51 - Severe persistent asthma with (acute) exacerbation (2) ILD (interstitial lung disease): 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 Will monitor for tendinitis restart Dupixent continue Brovana/BUdesonide continue Spiriva at night CXR now Will need a repeat CT chest march 2024 F/U 4-6 months the the Orders: Orders XR chest 2V Today J40 - Bronchitis, not specified as acute or chronic Medications: New levofloxacin 500 mg PO DAILY 8 days 8 tabs 0RF prednisone PO daily; Take 6 tabs daily x 3 days, then 5 tabs x 3 days, then 4 tabs x 3 days, then 3 tabs x 3 days, then 2 tabs daily x 3 days, then 1 tab x 3 days to complete. 18 days 63 tabs 0RF Coding Level of Care Code Est Pt Level 4 (11887) Diagnoses Severe persistent asthma with acute exacerbation J45.51 Asthma complication type: with acute exacerbation Asthma persistence: persistent Asthma severity: severe ILD (interstitial lung disease) J84.9 Allergy, initial encounter T78.40XA Encounter type: initial encounter Pulmonary nodules R91.8 Bronchitis J40 Time Spent (min) 16
== END 2024-01-17 14:03 | disposition home or self-care (01) ==
PROVIDERS: PCP Physician Assistant Medical; Visit Provider Hospitalist
DX: J45.51 Severe persistent asthma with (acute) exacerbation (principal); J84.9 Interstitial pulmonary disease, unspecified; T78.40XA Allergy, unspecified, initial encounter; R91.8 Other nonspecific abnormal finding of lung field; J40 Bronchitis, not specified as acute or chronic
CPT/HCPCS: 99214

== ENCOUNTER → 2024-01-17 13:01 | Outpatient (BNVA) | payer OTHER, SELFPAY | PROVIDERS: PCP Physician Assistant Medical; Visit Provider Hospitalist ==